=== PATIENT | male | born 1985 | race American Indian/Alaskan Native ===

== ENCOUNTER 2017-01-28 19:33 | Emergency (ER) | payer OTHER ==
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
[2017-01-28] MEDS ORDERED: MOTRIN PO ONE (23:55)
[2017-01-29 00:16] LABS: Bilirubin,Urine NEG (Negative); Blood,Urine NEG (Negative); Ketones,Urine NEG (Negative); Leukocyte Esterase,Urine NEG (Negative); Mucus,Urine FEW /HPF; Nitrite,Urine NEG (Negative); Protein,Urine <15 mg/dL mg/dL (Negative); Urobilinogen,Urine < 2.0 mg/dL (<2.0); WBC,Urine < 1.0 /HPF (0.0-6.0)
--- NOTE | 2017-01-29 00:36 | XRay Report ---
FINAL REPORT EXAM: XR SPINE LUMBOSACRAL 2-3V HISTORY: spinal tenderness COMPARISON: March 2016. FINDINGS: Five total images of the lumbar spine obtained. Lumbar vertebral body heights and disc heights are preserved. Pedicles are intact. No spondylolisthesis. IMPRESSION: Normal height and alignment of the lumbar spine.
[2017-01-29 01:25] VITALS: BP 133/88
== END 2017-01-29 01:24 | disposition home or self-care (01) ==
LOC: ED 19:33
DX: S39.012A Strain of muscle, fascia and tendon of lower back, initial encounter (principal); M54.16 Radiculopathy, lumbar region; V89.2XXA Person injured in unspecified motor-vehicle accident, traffic, initial encounter; Y93.89 Activity, other specified; Y99.8 Other external cause status; Y92.488 Other paved roadways as the place of occurrence of the external cause
CPT/HCPCS: 72100; 81001

== ENCOUNTER 2017-05-03 20:46 | Emergency (ER) | payer OTHER ==
--- NOTE | 2017-05-04 00:17 | Emergency Department Report ---
- General Chief Complaint: Upper Respiratory Infection Stated Complaint: COLD Time Seen by Provider: 05/04/17 00:07 Source: patient Mode of arrival: Ambulatory Limitations: No Limitations - History of Present Illness Initial Comments: 32 years old male coming tonight is the main complaint SINUS pain and pressure as being going on for more than 3 weeks he stated that he feels like his nose is blocking. Denied any fever shortness of breath nausea or vomiting. MD Complaint: nasal congestion, sinus pain -: Gradual, week(s) Severity: moderate Severity scale (0 -10): 4 - Related Data Previous Rx's Medication Instructions Recorded Last Taken Type Acetaminophen/Codeine [Tylenol #3] 1 tab PO Q6H PRN #15 tab 03/02/15 Unknown Rx Docusate Sodium [Colace CAP] 100 mg PO BID #20 capsule 03/02/15 Unknown Rx Cyclobenzaprine HCl [Flexeril 5 MG 5 mg PO TID PRN #21 tab 04/03/16 Unknown Rx TAB] Ibuprofen [Motrin 800 MG tab] 800 mg PO Q8HR PRN #30 tablet 04/03/16 Unknown Rx Cyclobenzaprine [Flexeril] 10 mg PO TID PRN #15 tablet 01/28/17 Unknown Rx Ibuprofen [Motrin 600 MG tab] 600 mg PO Q8H PRN #15 tablet 01/28/17 Unknown Rx Fluticasone [Flonase] 2 spray NS QDAY #1 bottle 05/04/17 Unknown Rx Sulfamethoxazole/Trimethoprim 1 each PO BID #14 tablet 05/04/17 Unknown Rx [Bactrim DS TAB] Allergies Allergy/AdvReac Type Severity Reaction Status Date / Time Penicillins Allergy Hives Verified 05/03/17 21:07 ED Review of Systems ROS: Stated complaint: COLD Other details as noted in HPI Constitutional: denies: chills Eyes: denies: eye discharge, vision change ENT: denies: throat pain Cardiovascular: denies: chest pain ED Past Medical Hx - Social History Smoking Status: Never Smoker Substance Use Type: None - Medications Home Medications: Home Medications Medication Instructions Recorded Confirmed Last Taken Type Acetaminophen/Codeine [Tylenol #3] 1 tab PO Q6H PRN #15 tab 03/02/15 Unknown Rx Docusate Sodium [Colace CAP] 100 mg PO BID #20 capsule 03/02/15 Unknown Rx Cyclobenzaprine HCl [Flexeril 5 MG 5 mg PO TID PRN #21 tab 04/03/16 Unknown Rx TAB] Ibuprofen [Motrin 800 MG tab] 800 mg PO Q8HR PRN #30 tablet 04/03/16 Unknown Rx Cyclobenzaprine [Flexeril] 10 mg PO TID PRN #15 tablet 01/28/17 Unknown Rx Ibuprofen [Motrin 600 MG tab] 600 mg PO Q8H PRN #15 tablet 01/28/17 Unknown Rx Fluticasone [Flonase] 2 spray NS QDAY #1 bottle 05/04/17 Unknown Rx Sulfamethoxazole/Trimethoprim 1 each PO BID #14 tablet 05/04/17 Unknown Rx [Bactrim DS TAB] ED Physical Exam - General Limitations: No Limitations General appearance: alert, in no apparent distress - Head Head exam: Present: normocephalic - ENT ENT exam: Present: other (right maxillary sinus tenderness) - Neck Neck exam: Present: normal inspection - Respiratory Respiratory exam: Present: normal lung sounds bilaterally - Cardiovascular Cardiovascular Exam: Present: regular rate, normal rhythm, normal heart sounds ED Course Vital Signs 05/03/17 05/03/17 21:30 21:31 Temperature 98.0 F Respiratory 18 Rate Blood Pressure 115/74 O2 Sat by Pulse 100 Oximetry Critical care attestation.: If time is entered above; I have spent that time in minutes in the direct care of this critically ill patient, excluding procedure time. ED Disposition Clinical Impression: Sinusitis Disposition: DC-01 TO HOME OR SELFCARE Is pt being admited?: No Condition: Stable Instructions: Sinusitis (ED) Prescriptions: Fluticasone [Flonase] 2 spray NS QDAY #1 bottle Sulfamethoxazole/Trimethoprim [Bactrim DS TAB] 1 each PO BID #14 tablet Referrals: PRIMARY CARE, [Primary Care Provider] - 3-5 Days Forms: Work/School Release Form(ED)
[2017-05-04 00:37] VITALS: BP 115/72
== END 2017-05-04 00:30 | disposition home or self-care (01) ==
LOC: ED 20:46
DX: J32.0 Chronic maxillary sinusitis (principal); Z88.0 Allergy status to penicillin
CPT/HCPCS: 99282